=== PATIENT | female | born 1960 | race Caucasian/White ===

== ENCOUNTER 2016-06-27 20:56 | Emergency (ER) | payer MEDICARE, MEDICAID ==
[~2016-06-27] VITALS: Ht 167.6 cm; Wt 113.0 kg
[~2016-06-27 20:56] MED LIST: BUDEPRION150 MG OR; CARISOPRODOL350 MG OR; IBUPROFEN600 MG PO; MUCINEX D1 TAB OR; MULTI VIT OR; NEXIUM40 M1 OR; NEXIUM40 MG PO; OXYCODONE10 MG OR; ULTRAM50 MG PO; XANAX0.25 MG OR; XANAX0.5 MG PO; ZOMIG5 M1; [UNRECOGNIZED DRUG - OTHER] OR
[2016-06-27 22:19] LABS: HEMATOCRIT 40.7 % (37.0-47.0); HEMOGLOBIN 13.7 g/dl (12.0-16.0); IMMATURE GRANULOCYTES 0.3 % (0.0-1.0); MEAN CELL VOLUME 89.6 fL CALC (80.0-100.0); MEAN CORPUSCULAR HGB 30.2 pG CALC (26.0-32.0); MEAN CORPUSCULAR HGB CONC 33.7 g/L CALC (32.0-36.0); NEUT# 3.32 thou/uL (2.00-7.15); RED BLOOD COUNT 4.54 mill/uL (4.20-5.60); RED CELL DISTRI WIDTH 16.2 % (11.5-15.5)
[2016-06-27 22:45] LABS: ALBUMIN 3.3 g/dL (3.2-5.0); ALKALINE PHOSPHATASE 129 u/l (38-126); ANION GAP 14 (6-22 (CALC)); BILIRUBIN, TOTAL 1.1 mg/dL (0.0-1.4); BUN 8 mg/dL (7-17); BUN/CREATININE RATIO 11 (12-20 (CALC)); CALCIUM 8.9 mg/dL (8.4-10.2); CARBON DIOXIDE 28 mmol/l (22-30); CHLORIDE 101 mmol/l (95-108); CREATININE 0.7 mg/dL (0.5-1.0); GFR > 60 ML/MIN (>=60 (CALC)); GFR FOR AFR.AMER. > 60 ML/MIN (>=60 (CALC)); GLUCOSE 91 mg/dL (65-105); POTASSIUM 3.9 mmol/l (3.5-5.1); SGOT/AST 117 u/l (14-36); SGPT/ALT 85 u/l (9-52); SODIUM 140 mmol/l (137-146); TOTAL PROTEIN 6.9 g/dL (6.3-8.2)
[2016-06-27 22:55] LABS: MYOGLOBIN 43 ng/mL (0 - 62)
[2016-06-27 23:39] LABS: URINE BILIRUBIN - DIPSTICK NEGATIVE (NEGATIVE); URINE BLOOD DIPSTICK NEGATIVE (NEGATIVE); URINE CLARITY CLEAR; URINE COLOR YELLOW; URINE GLUCOSE - DIPSTICK NEGATIVE (NEGATIVE); URINE KETONE NEGATIVE (NEGATIVE); URINE LEUK ESTERASE NEGATIVE (NEGATIVE); URINE NITRITE - DIPSTICK NEGATIVE (Negative); URINE PROTEIN - DIPSTICK NEGATIVE (NEG-TRACE)
[2016-06-27] MEDS ORDERED: ANTIVERT PO (23:53)
[2016-06-27] MEDS ORDERED: ZOFRAN ODT4 MG PO (23:53)
[2016-06-28 00:38] VITALS: BP 144/85
== END 2016-06-28 00:38 | disposition home or self-care (01) ==
LOC: ED 20:56
PROVIDERS: Emergency Medicine
DX: R42 Dizziness and giddiness (principal); R50.9 Fever, unspecified; I34.1 Nonrheumatic mitral (valve) prolapse; E16.2 Hypoglycemia, unspecified; R51 Headache